=== PATIENT | male | born 1970 ===

== ENCOUNTER 2021-07-15 08:57 | Day surgery (SDC) | payer BC ==
[~2021-07-15 08:57] MED LIST: FENTANYL CITR 250 MCG/5 ML ONE; LIDOCAINE 2% MPF 5 ML VIAL ONE; MIDAZOLAM HCL 2 MG/2 ML INJ ONE; ONDANSETRON 4 MG/2 ML VIAL ONE; ROCURONIUM 50 MG/5 ML VIAL IV ONE; SUCCINYLCHOLINE 20 MG/ML (10 ML) IV ONE; propofoL 200 MG/20 ML VIAL IV ONE
[2021-07-15] MEDS ORDERED: Ringers Lactate 1,000 ML IV ONE (09:27)
[2021-07-15] MEDS ORDERED: CEFAZOLIN SODIUM 1 GM/VIAL ONE ×2 (09:27→10:48)
[2021-07-15] MEDS ORDERED: BUPIVACAINE 0.25% PF 10 ML VIAL ONE (10:25)
[2021-07-15] MEDS: BUPIVACAINE 0.25% PF 10 ML VIAL ONE (10:50)
[2021-07-15] MEDS ORDERED: NEOSTIGMINE 1 MG/ML -5 ML ONE (11:22)
[2021-07-15] MEDS ORDERED: GLYCOPYRROLATE 0.2 MG/ML SYR ONE (11:22)
--- NOTE | 2021-07-15 11:35 | P.OP ---
Preoperative diagnosis: Recurrent Incarcerated Ventral Abdominal Wall Hernia Postoperative diagnosis: Recurrent Incarcerated Ventral Abdominal Wall Hernia Primary procedure: Laparoscopic repair of Recurrent Incarcerated Ventral Abdominal Wall Hernia Anesthesia: GETA + Local Estimated blood loss: < 5cc Specimen: none Findings: Recurrent Ventral Abdominal Wall Hernia ~ 2cm Implants: Bard Ventralite ST mesh with Echo 11.4cm round, sorbafix tacker Fluids & blood products: Transferred to: Recovery Room Condition: Good
[2021-07-15] MEDS ORDERED: SUGAMMADEX SODIUM 200 MG/2 ML VIAL IV ONE (11:47)
[2021-07-15] MEDS: HYDROMORPHONE HCL 2 MG/ML inj ONE ×4 (11:59→12:27)
[2021-07-15 13:01] VITALS: BP 109/68; TEMP 97.9
--- NOTE | 2021-07-15 13:07 | OP ---
Date of Procedure: 07/15/2021 Surgeon: Cristian Cortes MD, Preoperative Diagnosis: Recurrent incarcerated ventral abdominal hernia. Postoperative Diagnosis: Recurrent incarcerated ventral abdominal hernia. Procedure Performed: Laparoscopic repair of recurrent incarcerated ventral abdominal hernia. Anesthesia: General endotracheal plus local with 0.25% Marcaine. Estimated Blood Loss: 5 cc. Specimen: None. Findings: Recurrent ventral abdominal hernia with incarcerated omentum approximately 2 cm inside, rivera perior to previously placed implanted mesh. Additionally, significant intraabdominal adhesions from omentum to anterior bowel wall mesh as well as incarceration of the omentum into the hernia defect at the superior edge of the mesh. Implants: Bard Ventralight ST mesh with Echo positioning system 11.4 cm round including SorbaFix tac ker and absorbable fixation tacks. Disposition: The patient was transferred to the recovery room in good condition. Procedure In Detail: After informed consent was obtained, the patient was brought to the operating r oom, prepped and draped in the usual sterile fashion after adequate anesthesia was achieved. The are a of the left upper quadrant was anesthetized with 0.25% Marcaine and sharply incised. A 5 mm optica l trocar was introduced in the abdomen without evidence of complication. Insufflation was obtained t o 15 mmHg. There was no injury to vital structures upon entry into the abdomen. Insufflation was ob tained to 15 mmHg. I then found additional insertion trocar site in the left lower quadrant. This w as similarly anesthetized and sharply incised. A 12 mm trocar was placed under direct vision without evidence of complication. I then brought the LigaSure device and proceeded to take down the incarce rated omentum from the supraumbilical recurrent ventral abdominal hernia, which was located at the rivera perior edge of the mesh fixation system previously placed. The mesh had been flapped back slightly t o allow for this hernia to occur. At this point, I mobilized the area around the mesh and trimmed of f the omentum off the anterior surface of the mesh, which was firmly adherent to the entire previousl y placed mesh. After this was performed, I brought the Endo Stitch with V-Loc suture in the field an d I sewed the approximately 2 cm defect, closed at the superior edge of the mesh. I took the falcifo rm ligament about 25% down to allow for good landing zone for the mesh I was going to place. After t he hernia defect was completely closed with the V-Loc suture in a running fashion, good apposition of the tissue was appreciated. I then brought in the 11.[address] mesh and used the Ech o positioning system. Minimal small stab incision in the center portion of the hernia and position o f the mesh centrally for the balloon was deployed and I then used the SorbaFix fixation tacks. I zack martha a double crown fixation of the tacks to the anterior bowel wall. The balloon deployment system w as removed and the remaining tacks were then tacked to the anterior abdominal wall. The mesh had goo d apposition of the abdominal wall. No additional hernia defects were appreciated. No hemostatic ma neuvers were required. At this point, I then closed the 12 mm trocar site using a Dno rivera ture passer with 0 Vicryl in interrupted fashion. The abdomen was completely desufflated under direc t visualization without evidence of complication. The remaining skin incisions copiously irrigated a nd closed with a 4-0 Monocryl in a running fashion. Dermabond was placed over top. The patient dennys rated the procedure well without evidence of complication and transferred to PACU in good condition. All counts were correct at the end of the case. TK/MODL Voice ID: [id number] Report ID: [id number]
[2021-07-15 13:51] VITALS: O2SAT 95
== END 2021-07-15 13:50 | disposition home or self-care (01) ==
LOC: OR 08:57
PROVIDERS: ATTEND Surgery
PROC: 0WUF4JZ Supplement Abdominal Wall with Synthetic Substitute, Percutaneous Endoscopic Approach (ICD-10-PCS; principal; 2021-07-15 10:00)
DX: K43.6 Other and unspecified ventral hernia with obstruction, without gangrene (principal)
CPT/HCPCS: 49657; J2704; J0330; J2250; J1170; J3010; J2710; J7120; J2405; J0690 ×2; C1781